=== PATIENT | male | born 1950 | race Caucasian/White ===

== ENCOUNTER 2019-10-21 17:47 | Emergency (ER) | payer SELFPAY ==
[~2019-10-21] VITALS: Ht 167.6 cm; Wt 113.6 kg
[2019-10-21] MEDS ORDERED: FAMO20 PO (18:04)
[2019-10-21] MEDS ORDERED: GABA-1216 PO (18:04)
[2019-10-21] MEDS ORDERED: HYDR-1475 PO (18:04)
[2019-10-21] MEDS ORDERED: METO-558 PO (18:04)
[2019-10-21] MEDS ORDERED: VALS160T2 PO (18:06)
[2019-10-21] MEDS ORDERED: ATOR40TA28 PO (18:06)
[2019-10-21] MEDS ORDERED: DOXA2TAB PO (18:06)
[2019-10-21 19:54] LABS: APPEARANCE,URINE CLEAR (CLEAR); BILIRUBIN,URINE NEGATIVE (NEGATIVE); GLUCOSE, URINE (UA) NEGATIVE (NEGATIVE); KETONES,URINE NEGATIVE (NEGATIVE); LEUKOCYTE ESTERASE ,URINE MODERATE (NEGATIVE); NITRATE,URINE NEGATIVE (NEGATIVE); OCCULT BLOOD,URINE NEGATIVE (NEGATIVE); PH,URINE 5.5 (5.0-8.0); PROTEIN,URINE NEGATIVE (NEGATIVE)
[2019-10-21 20:13] LABS: BACTERIA,URINE Many /HPF (None Seen); RBC,URINE None Seen /HPF (0-2)
[2019-10-21 20:14] LABS: SQUAMOUS EPITHELIAL CELL,UR Rare /LPF (None Seen)
[2019-10-21] MEDS ORDERED: CefTRIAXone SODIUM 1 GM/VIAL IM ONE (20:15)
[2019-10-21] MEDS ORDERED: LIDOCAINE/PF 1% 2 ML VIAL IM ONE (20:15)
[2019-10-21 20:25] VITALS: BP 136/88
== END 2019-10-21 21:00 | disposition home or self-care (01) ==
LOC: EMS 17:50
DX: N39.0 Urinary tract infection, site not specified (principal); E78.00 Pure hypercholesterolemia, unspecified; I10 Essential (primary) hypertension
CPT/HCPCS: 81001; 87086; 96372; 99283; J0696; J3490

== ENCOUNTER 2019-10-27 07:59 | Emergency (ER) | payer MEDICARE, OTHER ==
[~2019-10-27] VITALS: Ht 165.1 cm; Wt 100.0 kg
[~2019-10-27 07:59] MED LIST: ATOR40TA28 PO; DOXA2TAB PO; FAMO20 PO; GABA-1216 PO; HYDR-1475 PO; METO-558 PO; VALS160T2 PO
[2019-10-27 11:50] LABS: APPEARANCE,URINE CLEAR (CLEAR); GLUCOSE, URINE (UA) NEGATIVE (NEGATIVE); KETONES,URINE TRACE mg/dL (NEGATIVE); LEUKOCYTE ESTERASE ,URINE NEGATIVE (NEGATIVE); NITRATE,URINE NEGATIVE (NEGATIVE); OCCULT BLOOD,URINE NEGATIVE (NEGATIVE); PH,URINE 5.5 (5.0-8.0); PROTEIN,URINE NEGATIVE (NEGATIVE); UROBILINOGEN,URINE 0.2 mg/dL (<=1.0)
[2019-10-27 11:53] LABS: BILIRUBIN,URINE PRELIM. POSITIVE (NEGATIVE)
[2019-10-27 12:02] LABS: BACTERIA,URINE None Seen /HPF (None Seen); RBC,URINE 0-2 /HPF (0-2); WBC,URINE 0-2 /HPF (0-5)
[2019-10-27 12:42] LABS: BASOPHILS % (AUTO) 0.9 % (0.0-2.0); EOSINOPHILS % (AUTO) 1.9 % (1.0-6.0); HEMATOCRIT 47.9 % (41-53); HEMOGLOBIN 16.2 g/dL (13.5-17.5); LYMPHOCYTES # (AUTO) 2.7 K/uL (1.0-4.8); LYMPHOCYTES % (AUTO) 37.5 % (22.0-44.0); MEAN CORPUSCULAR HEMOGLOBIN 30.7 pg (26.0-34.0); MEAN CORPUSCULAR HGB CONC 33.8 G/dL (31.0-37.0); MEAN CORPUSCULAR VOLUME 91 fL (80-100); MONOCYTES # (AUTO) 0.6 K/uL (0.1-1.0); MONOCYTES % (AUTO) 8.3 % (2.0-9.0); NEUTROPHILS # (AUTO) 3.8 K/uL (1.8-7.7); NEUTROPHILS % (AUTO) 51.4 % (40.0-70.0); PLATELET COUNT (AUTO) 195 K/uL (150-450); RED BLOOD CELL COUNT(AUTO) 5.27 MIL/uL (4.50-5.90); RED CELL DISTRIBUTION WIDTH 13.9 % (11.5-14.5)
[2019-10-27 12:50] LABS: CREATININE 1.24 mg/dL (0.60-1.30); POTASSIUM 3.4 mmol/L (3.5-5.1)
[2019-10-27 12:56] LABS: ALBUMIN 3.7 g/dL (3.4-5.0); BILIRUBIN,TOTAL 0.9 mg/dL (0.1-1.0); TOTAL PROTEIN, SERUM 7.6 g/dL (6.4-8.2)
[2019-10-27 14:30] VITALS: BP 111/65
[2019-10-27] MEDS ORDERED: POTASSIUM CHLORIDE 20 MEQ ER TABLET PO ONE (14:30)
== END 2019-10-27 15:21 | disposition home or self-care (01) ==
LOC: EMS 08:01
DX: E87.6 Hypokalemia (principal); R32 Unspecified urinary incontinence; R30.0 Dysuria; R39.15 Urgency of urination; E78.00 Pure hypercholesterolemia, unspecified; I10 Essential (primary) hypertension
CPT/HCPCS: 76700

== ENCOUNTER 2022-02-07 16:31 | Emergency (ER) | payer OTHER ==
[~2022-02-07] VITALS: Ht 165.1 cm; Wt 116.5 kg
[~2022-02-07 16:31] MED LIST changes: +ASPI-1444 PO; +DONE-52 PO; -DOXA2TAB PO; +DOXA2TAB86 PO; -HYDR-1475 PO
[2022-02-07 19:01] LABS: BASOPHILS % (AUTO) 0.7 % (0.0-2.0); EOSINOPHILS % (AUTO) 2.3 % (1.0-6.0); HEMATOCRIT 42.2 % (41-53); HEMOGLOBIN 14.3 g/dL (13.5-17.5); LYMPHOCYTES # (AUTO) 2.3 K/uL (1.0-4.8); LYMPHOCYTES % (AUTO) 34.5 % (22.0-44.0); MEAN CORPUSCULAR HEMOGLOBIN 30.2 pg (26.0-34.0); MEAN CORPUSCULAR HGB CONC 33.8 G/dL (31.0-37.0); MEAN CORPUSCULAR VOLUME 89 fL (80-100); MONOCYTES # (AUTO) 0.6 K/uL (0.1-1.0); MONOCYTES % (AUTO) 9.1 % (2.0-9.0); NEUTROPHILS # (AUTO) 3.5 K/uL (1.8-7.7); NEUTROPHILS % (AUTO) 53.4 % (40.0-70.0); PLATELET COUNT (AUTO) 179 K/uL (150-450); RED BLOOD CELL COUNT(AUTO) 4.72 MIL/uL (4.50-5.90); RED CELL DISTRIBUTION WIDTH 13.5 % (11.5-14.5)
[2022-02-07 19:08] LABS: ANION GAP 5 mmol/L (8-16); CALCIUM, TOTAL 8.4 mg/dL (8.8-10.5); CARBON DIOXIDE 33 mmol/L (22-29); CHLORIDE 106 mmol/L (98-107); GLUCOSE,RANDOM 144 mg/dL (70-110); POTASSIUM 3.3 mmol/L (3.5-5.1); SODIUM SERUM 144 mmol/L (136-145); UREA NITROGEN, BLOOD 16 mg/dL (7-18)
[2022-02-07 19:09] LABS: GLOMERULAR FILTR. RATE CALC > 60 mL/min (>60)
[2022-02-07 19:13] LABS: COVID AG,FIA SOURCE NASAL SWAB
[2022-02-07 19:15] LABS: ALANINE AMINOTRANSFERASE 13 U/L (12-78); ALBUMIN 2.9 g/dL (3.4-5.0); ALKALINE PHOSPHATASE 72 U/L (46-116); ASPARTATE AMINOTRANSFERASE 17 U/L (15-37); B-TYPE NATRIURETIC PEPTIDE 109 pg/mL (0-100); BILIRUBIN,TOTAL 0.5 mg/dL (0.1-1.0); TOTAL PROTEIN, SERUM 6.4 g/dL (6.4-8.2)
[2022-02-07] MEDS ORDERED: POTASSIUM CHLORIDE 20 MEQ ER TABLET PO ONE (19:30)
[2022-02-07] MEDS ORDERED: FUROSEMIDE 40 MG/4 ML VIAL IVP ONE (19:30)
[2022-02-08 05:46] VITALS: BP 118/68
== END 2022-02-08 09:11 | disposition home or self-care (01) ==
LOC: EMS 16:32
DX: R06.02 Shortness of breath (principal); Z20.822 Contact with and (suspected) exposure to COVID-19; I11.0 Hypertensive heart disease with heart failure; I50.9 Heart failure, unspecified; K21.9 Gastro-esophageal reflux disease without esophagitis; N40.0 Benign prostatic hyperplasia without lower urinary tract symptoms
CPT/HCPCS: 99285; 96374; 71045; 87426; 80053; 83880; 84484; 85025; 85379; 87040; 36415; 93005; J1940

== ENCOUNTER 2022-08-15 14:35 | Inpatient (IN) | payer MEDICARE, OTHER ==
[~2022-08-15] VITALS: Ht 170.2 cm; Wt 120.5 kg
[2022-08-15] MEDS ORDERED: APIX5TAB PO (14:55)
[2022-08-15] MEDS ORDERED: CARV25TA32 PO (14:55)
[2022-08-15] MEDS ORDERED: LINA5TAB PO (14:55)
[2022-08-15] MEDS ORDERED: FURO20 PO (14:55)
[2022-08-15 15:58] LABS: BASOPHILS % (AUTO) 0.6 % (0.0-2.0); EOSINOPHILS % (AUTO) 0.4 % (1.0-6.0); HEMATOCRIT 45.8 % (41-53); HEMOGLOBIN 15.2 g/dL (13.5-17.5); LYMPHOCYTES # (AUTO) 0.4 K/uL (1.0-4.8); LYMPHOCYTES % (AUTO) 4.5 % (22.0-44.0); MEAN CORPUSCULAR HEMOGLOBIN 30.3 pg (26.0-34.0); MEAN CORPUSCULAR HGB CONC 33.2 G/dL (31.0-37.0); MEAN CORPUSCULAR VOLUME 91 fL (80-100); MONOCYTES # (AUTO) 0.4 K/uL (0.1-1.0); MONOCYTES % (AUTO) 4.8 % (2.0-9.0); NEUTROPHILS # (AUTO) 8.2 K/uL (1.8-7.7); PLATELET COUNT (AUTO) 172 K/uL (150-450); RED BLOOD CELL COUNT(AUTO) 5.02 MIL/uL (4.50-5.90); RED CELL DISTRIBUTION WIDTH 13.9 % (11.5-14.5)
[2022-08-15 16:01] LABS: ABG BASE EXCESS 5.3 mmol/L (-2.0-3.0); ABG CARBOXYHEMOGLOBIN 0.3 % (0.0-1.5); ABG METHEMOGLOBIN 1.6 % (0.0-1.5); ABG OXYGEN CONTENT 3.5 mL/dL (15.0-23.0); ABG OXYHEMOGLOBIN 16.6 % (94.0-100.0); ABG PCO2 50 mmHg (35-45); ABG PH 7.397 (7.35-7.450); TEMPERATURE, FAHRENHEIT, BG 98.5 FAHREN (96.0-98.6)
[2022-08-15 16:01] LABS: NEUTROPHILS % (AUTO) 89.7 % (40.0-70.0)
[2022-08-15 16:03] LABS: PO2, ARTERIAL BG 13.4 mmHg (75.0-83.0)
[2022-08-15 16:04] LABS: ABG OXYGEN SATURATION 16.9 % (95.0-98.0)
[2022-08-15 16:06] LABS: SITE, BLOOD GAS VENOUS LINE
[2022-08-15 16:07] LABS: SOURCE, BLOOD GAS VENOUS
[2022-08-15 16:08] LABS: ANION GAP 5 mmol/L (8-16); CALCIUM, TOTAL 8.2 mg/dL (8.8-10.5); CARBON DIOXIDE 32 mmol/L (22-29); CHLORIDE 102 mmol/L (98-107); CREATININE 1.25 mg/dL (0.60-1.30); GLOMERULAR FILTR. RATE CALC 57 mL/min (>60); GLUCOSE,RANDOM 154 mg/dL (70-110); POTASSIUM 3.7 mmol/L (3.5-5.1); SODIUM SERUM 139 mmol/L (136-145); UREA NITROGEN, BLOOD 26 mg/dL (7-18)
[2022-08-15 16:11] LABS: INR 1.1 (0.9-1.1); PROTHROMBIN TIME 11.7 SEC (9.4-11.6)
[2022-08-15 16:14] LABS: B-TYPE NATRIURETIC PEPTIDE 198 pg/mL (0-100)
[2022-08-15 16:15] LABS: ALANINE AMINOTRANSFERASE 15 U/L (12-78); ALBUMIN 3.1 g/dL (3.4-5.0); ALKALINE PHOSPHATASE 106 U/L (46-116); ASPARTATE AMINOTRANSFERASE 24 U/L (15-37); BILIRUBIN,TOTAL 0.9 mg/dL (0.1-1.0); CREATINE KINASE, TOTAL ONLY 232 U/L (39-308); PHOSPHORUS 1.5 mg/dL (2.5-4.9); TOTAL PROTEIN, SERUM 6.7 g/dL (6.4-8.2)
[2022-08-15 16:17] LABS: AMMONIA 25 umol/L (11-32)
[2022-08-15 16:23] LABS: PLATELET MORPHOLOGY COMMENT LARGE PLTS PRESENT
[2022-08-15] MEDS ORDERED: DOXA1TAB9 PO (16:37)
[2022-08-15] MEDS ORDERED: FUROSEMIDE 20 MG/2 ML VIAL IVP ONE (16:45)
[2022-08-15 17:01] LABS: COVID AG,FIA SOURCE NASOPHARYNGEAL
[2022-08-15 17:30] LABS: INFLUENZA TYPE A NEGATIVE FOR TYPE A (NEGATIVE); INFLUENZA TYPE B NEGATIVE FOR TYPE B (NEGATIVE)
[2022-08-15] MEDS ORDERED: LORazepam 2 MG/ML VIAL IVP ONE (17:30)
[2022-08-15 20:22] LABS: APPEARANCE,URINE HAZY (CLEAR); BILIRUBIN,URINE NEGATIVE (NEGATIVE); GLUCOSE, URINE (UA) NEGATIVE (NEGATIVE); KETONES,URINE NEGATIVE (NEGATIVE); LEUKOCYTE ESTERASE ,URINE MODERATE (NEGATIVE); NITRATE,URINE NEGATIVE (NEGATIVE); OCCULT BLOOD,URINE MODERATE (NEGATIVE); PROTEIN,URINE TRACE mg/dL (NEGATIVE); SPECIFIC GRAVITIY, URINE 1.018 (1.003-1.030); UROBILINOGEN,URINE <=1.0 mg/dL (<=1.0)
[2022-08-15 20:29] LABS: AMPHET/METH SCREEN,URINE NEGATIVE (NEGATIVE); BARBITURATE SCREEN, URINE NEGATIVE (NEGATIVE); BENZODIAZEPINES SCREEN,URINE NEGATIVE (NEGATIVE); CANNABINOID SCREEN,URINE NEGATIVE (NEGATIVE); COCAINE SCREEN,URINE NEGATIVE (NEGATIVE); METHADONE SCREEN, URINE NEGATIVE (NEGATIVE); OPIATE SCREEN,URINE NEGATIVE (NEGATIVE); PHENCYCLIDINE SCREEN,URINE NEGATIVE (NEGATIVE)
[2022-08-15 20:33] LABS: BACTERIA,URINE Moderate /HPF (None Seen); SQUAMOUS EPITHELIAL CELL,UR None Seen /LPF (None Seen)
[2022-08-15] MEDS ORDERED: ACETAMINOPHEN 325 MG TABLET PO PRN (20:45)
[2022-08-15] MEDS ORDERED: ALBUTEROL SULFATE 2.5 MG/0.5 ML NEB SOLUTION NEB PRN (20:45)
[2022-08-15] MEDS ORDERED: INSULIN LISPRO 100 UNITS/ML SQ PRN (20:45)
[2022-08-15] MEDS ORDERED: DEXTROSE 50%-WATER 25 GM/50 ML SYRINGE IVP PRN (20:45)
[2022-08-15] MEDS ORDERED: IPRATROPIUM BROMIDE 0.5 MG/2.5 ML NEB SOLUTION NEB PRN (20:45)
[2022-08-15] MEDS ORDERED: ONDANSETRON HCL 4 MG/2 ML VIAL IVP PRN (20:45)
[2022-08-15] MEDS ORDERED: CefTRIAXone 1 GM/DEXTROSE 50 ML IV SCH (21:00)
[2022-08-15] MEDS ORDERED: AZITHROMYCIN 500 MG/NS 250 ML IV SCH (22:00)
[2022-08-15] MEDS: FAMOTIDINE 20 MG TABLET PO SCH (22:04)
[2022-08-15] MEDS: APIXABAN 5 MG TABLET PO SCH (22:04)
[2022-08-15] MEDS: DOXAZOSIN MESYLATE 1 MG TABLET PO SCH (22:04)
[2022-08-15] MEDS: ATORVASTATIN CALCIUM 40 MG TABLET PO SCH (22:04)
[2022-08-15] MEDS: GABAPENTIN 100 MG CAPSULE PO SCH (22:04)
[2022-08-15] MEDS: CARVEDILOL 25 MG TABLET PO SCH (22:04)
[2022-08-15] MEDS ORDERED: SODIUM CHLORIDE 0.9% 250 ML IV ONE (22:12)
[2022-08-15 22:27] VITALS: BP 111/64
[2022-08-16] MEDS ORDERED: HEPARIN SODIUM,PORCINE 5,000 UNITS/ML VIAL SQ SCH
[2022-08-16] MEDS ORDERED: SODIUM,POTASSIUM PHOSPHATES POWDER PACKET PO ONE (03:15)
[2022-08-16 03:56] LABS: GLUCOMETER DEV NAME(LOC) 5N.1C; GLUCOSE,POINT OF CARE 134 MG/DL (70-110)
[2022-08-16] MEDS ORDERED: NYSTATIN 15 GM POWDER BOTTLE TP PRN (04:00)
[2022-08-16 04:36] VITALS: BP 99/54
[2022-08-16] MEDS ORDERED: FUROSEMIDE 20 MG/2 ML VIAL IVP SCH (07:00)
[2022-08-16 07:39] VITALS: BP 105/57
[2022-08-16] MEDS: DOXAZOSIN MESYLATE 1 MG TABLET PO SCH (10:28)
[2022-08-16] MEDS: ASPIRIN 81 MG DR TABLET PO SCH (10:28)
[2022-08-16] MEDS: GABAPENTIN 100 MG CAPSULE PO SCH ×2 (10:28→17:18)
[2022-08-16] MEDS: CARVEDILOL 25 MG TABLET PO SCH ×2 (10:29→20:46)
[2022-08-16] MEDS: APIXABAN 5 MG TABLET PO SCH ×2 (10:29→20:46)
[2022-08-16] MEDS: FAMOTIDINE 20 MG TABLET PO SCH ×2 (10:37→20:46)
[2022-08-16 11:39] VITALS: BP 100/48
[2022-08-16] MEDS ORDERED: PERFLUTREN PROTEIN-A MICROSPHERES 0.22 MG/ML 3 ML VIAL IVP ONE (12:45)
[2022-08-16 16:44] VITALS: BP 102/65
[2022-08-16] MEDS ORDERED: GABAPENTIN 300 MG CAPSULE PO PRN (17:45)
[2022-08-16 20:06] LABS: GLUCOMETER DEV NAME(LOC) 5S.2C; GLUCOSE,POINT OF CARE 175 MG/DL (70-110)
[2022-08-16] MEDS: ATORVASTATIN CALCIUM 40 MG TABLET PO SCH (20:46)
[2022-08-16] MEDS: GABAPENTIN 300 MG CAPSULE PO SCH (20:46)
[2022-08-16] MEDS: MELATONIN 5 MG TABLET PO SCH (20:47)
[2022-08-16] MEDS: INSULIN GLARGINE,HUM.REC.ANLOG 100 UNITS/ML SQ SCH ×2 (20:50→21:00)
[2022-08-17] VITALS: BP 137/75
[2022-08-17 04:00] VITALS: BP 109/67
[2022-08-17 06:07] LABS: GLUCOMETER DEV NAME(LOC) 5N.1C; GLUCOSE,POINT OF CARE 130 MG/DL (70-110)
[2022-08-17 06:07] LABS: GLUCOMETER DEV NAME(LOC) 5N.1C; GLUCOSE,POINT OF CARE 109 MG/DL (70-110)
[2022-08-17 06:42] LABS: BASOPHILS % (AUTO) 0.3 % (0.0-2.0); EOSINOPHILS % (AUTO) 1.7 % (1.0-6.0); HEMATOCRIT 38.8 % (41-53); HEMOGLOBIN 13.2 g/dL (13.5-17.5); LYMPHOCYTES # (AUTO) 2.2 K/uL (1.0-4.8); LYMPHOCYTES % (AUTO) 24.7 % (22.0-44.0); MEAN CORPUSCULAR HEMOGLOBIN 30.7 pg (26.0-34.0); MEAN CORPUSCULAR VOLUME 90 fL (80-100); MONOCYTES % (AUTO) 11.6 % (2.0-9.0); NEUTROPHILS # (AUTO) 5.4 K/uL (1.8-7.7); NEUTROPHILS % (AUTO) 61.7 % (40.0-70.0); PLATELET COUNT (AUTO) 151 K/uL (150-450); RED CELL DISTRIBUTION WIDTH 13.7 % (11.5-14.5)
[2022-08-17 06:57] LABS: ANION GAP 7 mmol/L (8-16); CALCIUM, TOTAL 8.2 mg/dL (8.8-10.5); CARBON DIOXIDE 29 mmol/L (22-29); CHLORIDE 105 mmol/L (98-107); CREATININE 1.15 mg/dL (0.60-1.30); GLOMERULAR FILTR. RATE CALC > 60 mL/min (>60); GLUCOSE,RANDOM 103 mg/dL (70-110); POTASSIUM 3.2 mmol/L (3.5-5.1); SODIUM SERUM 141 mmol/L (136-145); UREA NITROGEN, BLOOD 38 mg/dL (7-18)
[2022-08-17 08:28] VITALS: BP 104/68
[2022-08-17] MEDS: FUROSEMIDE 20 MG TABLET PO SCH (08:29)
[2022-08-17] MEDS: DULoxetine HCL 20 MG CAPSULE PO SCH (08:29)
[2022-08-17] MEDS: APIXABAN 5 MG TABLET PO SCH ×2 (08:30→20:08)
[2022-08-17] MEDS: GABAPENTIN 300 MG CAPSULE PO SCH ×3 (08:30→20:08)
[2022-08-17] MEDS: FAMOTIDINE 20 MG TABLET PO SCH ×2 (08:31→20:08)
[2022-08-17] MEDS: CARVEDILOL 25 MG TABLET PO SCH ×2 (08:31→20:08)
[2022-08-17] MEDS: ASPIRIN 81 MG DR TABLET PO SCH (08:31)
[2022-08-17] MEDS ORDERED: FUROSEMIDE 20 MG/2 ML VIAL IVP SCH (09:00)
[2022-08-17 11:21] VITALS: BP 105/62
[2022-08-17] MEDS ORDERED: POTASSIUM CHLORIDE 20 MEQ ER TABLET PO ONE (15:45)
[2022-08-17 16:01] VITALS: BP 110/68
[2022-08-17 18:31] LABS: GLUCOMETER DEV NAME(LOC) 5S.1B; GLUCOSE,POINT OF CARE 100 MG/DL (70-110)
[2022-08-17] MEDS: ATORVASTATIN CALCIUM 40 MG TABLET PO SCH (20:08)
[2022-08-17] MEDS: DOXAZOSIN MESYLATE 1 MG TABLET PO SCH (20:08)
[2022-08-17] MEDS: MELATONIN 5 MG TABLET PO SCH (20:08)
[2022-08-17] MEDS: INSULIN GLARGINE,HUM.REC.ANLOG 100 UNITS/ML SQ SCH (20:17)
[2022-08-17 20:30] LABS: GLUCOMETER DEV NAME(LOC) 5N.1C; GLUCOSE,POINT OF CARE 153 MG/DL (70-110)
[2022-08-17 20:31] LABS: GLUCOMETER DEV NAME(LOC) 5N.1C; GLUCOSE,POINT OF CARE 196 MG/DL (70-110)
[2022-08-18 04:00] VITALS: BP 108/65
[2022-08-18 08:25] VITALS: BP 131/78
[2022-08-18] MEDS: FAMOTIDINE 20 MG TABLET PO SCH (08:31)
[2022-08-18] MEDS: DULoxetine HCL 20 MG CAPSULE PO SCH (08:31)
[2022-08-18] MEDS: CARVEDILOL 25 MG TABLET PO SCH (08:32)
[2022-08-18] MEDS: GABAPENTIN 300 MG CAPSULE PO SCH ×2 (08:32→16:09)
[2022-08-18] MEDS: FUROSEMIDE 20 MG TABLET PO SCH (08:32)
[2022-08-18] MEDS: APIXABAN 5 MG TABLET PO SCH (08:32)
[2022-08-18] MEDS: ASPIRIN 81 MG DR TABLET PO SCH (08:33)
[2022-08-18] MEDS ORDERED: LOSARTAN POTASSIUM 25 MG TABLET PO SCH (09:00)
[2022-08-18] MEDS ORDERED: SPIRONOLACTONE 25 MG TABLET PO SCH (09:00)
[2022-08-18 11:01] LABS: ANION GAP 5 mmol/L (8-16); CALCIUM, TOTAL 8.3 mg/dL (8.8-10.5); CARBON DIOXIDE 30 mmol/L (22-29); CHLORIDE 107 mmol/L (98-107); CREATININE 1.09 mg/dL (0.60-1.30); GLOMERULAR FILTR. RATE CALC > 60 mL/min (>60); GLUCOSE,RANDOM 166 mg/dL (70-110); POTASSIUM 3.7 mmol/L (3.5-5.1); SODIUM SERUM 142 mmol/L (136-145); UREA NITROGEN, BLOOD 25 mg/dL (7-18)
[2022-08-18 12:40] VITALS: BP 149/79
[2022-08-18 17:49] VITALS: BP 137/91
[2022-08-18 20:26] LABS: GLUCOMETER DEV NAME(LOC) 5S.1B; GLUCOSE,POINT OF CARE 95 MG/DL (70-110)
[2022-08-19 05:36] LABS: GLUCOMETER DEV NAME(LOC) 5N.1C; GLUCOSE,POINT OF CARE 148 MG/DL (70-110)
== END 2022-08-18 17:40 | DRG 291 ==
LOC: EMS 14:37 → 5S 20:58
PROVIDERS: ADMIT Internal Medicine; ATTEND Internal Medicine
DX: I11.0 Hypertensive heart disease with heart failure (principal); G92.9 Unspecified toxic encephalopathy; J18.9 Pneumonia, unspecified organism; I50.43 Acute on chronic combined systolic (congestive) and diastolic (congestive) heart failure; N39.0 Urinary tract infection, site not specified; I48.19 Other persistent atrial fibrillation; Z68.41 Body mass index [BMI] 40.0-44.9, adult; Z20.822 Contact with and (suspected) exposure to COVID-19; K21.9 Gastro-esophageal reflux disease without esophagitis; R41.89 Other symptoms and signs involving cognitive functions and awareness; R15.9 Full incontinence of feces; W07.XXXA Fall from chair, initial encounter; E87.6 Hypokalemia; W18.2XXA Fall in (into) shower or empty bathtub, initial encounter; E78.00 Pure hypercholesterolemia, unspecified; F32.9 Major depressive disorder, single episode, unspecified; E11.9 Type 2 diabetes mellitus without complications; E66.01 Morbid (severe) obesity due to excess calories; F03.90 Unspecified dementia, unspecified severity, without behavioral disturbance, psychotic disturbance, mood disturbance, and anxiety; I25.10 Atherosclerotic heart disease of native coronary artery without angina pectoris; N40.0 Benign prostatic hyperplasia without lower urinary tract symptoms; Z79.01 Long term (current) use of anticoagulants; Z79.84 Long term (current) use of oral hypoglycemic drugs; Z79.899 Other long term (current) drug therapy; Y93.E1 Activity, personal bathing and showering; Y92.89 Other specified places as the place of occurrence of the external cause; Z79.82 Long term (current) use of aspirin; Z79.4 Long term (current) use of insulin
CPT/HCPCS: 36600; 70450; 71250; 72125; 80048; 80053; 80307; 81001; 82140; 82550; 82805; 82962; 83605; 83735; 83880; 84100; 84484; 85025; 85610; 85730; 87040; 87086; 87186; 87804; 93005; 93306; 97162; 97166; 97535; 99291; G0480; J0456; J0696; J1815; J1940; J2060; J7050; Q9967

== ENCOUNTER 2022-10-05 15:11 | Emergency (ER) | payer MEDICARE, OTHER ==
[~2022-10-05] VITALS: Ht 172.7 cm; Wt 104.5 kg
[~2022-10-05 15:11] MED LIST changes: +APIX5TAB PO; -ASPI-1444 PO; +CARV25TA32 PO; -DONE-52 PO; +DOXA1TAB9 PO; -DOXA2TAB86 PO; +FURO20 PO; +LINA5TAB PO; -METO-558 PO; -VALS160T2 PO
[2022-10-05] MEDS ORDERED: LIDOCAINE 5% TRANSDERMAL PATCH TD ONE (16:45)
[2022-10-05] MEDS ORDERED: KETOROLAC TROMETHAMINE 30 MG/ML VIAL IM ONE (16:45)
[2022-10-05] MEDS ORDERED: CYCLOBENZAPRINE HCL 10 MG TABLET PO ONE (16:45)
[2022-10-05 17:03] LABS: BASOPHILS % (AUTO) 0.4 % (0.0-2.0); EOSINOPHILS % (AUTO) 2.8 % (1.0-6.0); HEMATOCRIT 42.7 % (41-53); HEMOGLOBIN 14.2 g/dL (13.5-17.5); LYMPHOCYTES # (AUTO) 2.4 K/uL (1.0-4.8); LYMPHOCYTES % (AUTO) 30.8 % (22.0-44.0); MEAN CORPUSCULAR HEMOGLOBIN 30.3 pg (26.0-34.0); MEAN CORPUSCULAR HGB CONC 33.2 G/dL (31.0-37.0); MEAN CORPUSCULAR VOLUME 91 fL (80-100); MONOCYTES # (AUTO) 0.7 K/uL (0.1-1.0); NEUTROPHILS # (AUTO) 4.5 K/uL (1.8-7.7); PLATELET COUNT (AUTO) 177 K/uL (150-450); RED BLOOD CELL COUNT(AUTO) 4.68 MIL/uL (4.50-5.90); RED CELL DISTRIBUTION WIDTH 13.9 % (11.5-14.5)
[2022-10-05 17:16] LABS: ANION GAP 2 mmol/L (8-16); CALCIUM, TOTAL 8.4 mg/dL (8.8-10.5); CARBON DIOXIDE 34 mmol/L (22-29); CHLORIDE 104 mmol/L (98-107); CREATININE 1.13 mg/dL (0.60-1.30); GLOMERULAR FILTR. RATE CALC > 60 mL/min (>60); GLUCOSE,RANDOM 98 mg/dL (70-110); POTASSIUM 3.8 mmol/L (3.5-5.1); SODIUM SERUM 140 mmol/L (136-145); UREA NITROGEN, BLOOD 22 mg/dL (7-18)
[2022-10-05] MEDS ORDERED: CYCL-448 PO (18:10)
[2022-10-05] MEDS ORDERED: ACET-3385 PO (18:10)
[2022-10-05 18:18] VITALS: BP 129/61
== END 2022-10-05 20:30 | disposition home or self-care (01) ==
LOC: EMS 15:15
DX: M54.50 Low back pain, unspecified (principal); I48.91 Unspecified atrial fibrillation; I11.0 Hypertensive heart disease with heart failure; I50.9 Heart failure, unspecified; K21.9 Gastro-esophageal reflux disease without esophagitis; I25.10 Atherosclerotic heart disease of native coronary artery without angina pectoris
CPT/HCPCS: 99285; 74176; 80048; 85025; 36415; 96372; J1885

== ENCOUNTER 2023-01-28 07:40 | Inpatient (IN) | payer MEDICARE, OTHER ==
[~2023-01-28] VITALS: Ht 170.2 cm; Wt 123.5 kg
[~2023-01-28 07:40] MED LIST changes: +CEPH-558 PO; +CYCL-448 PO; +LISI-892 PO
[2023-01-28 08:26] LABS: BASOPHILS % (AUTO) 0.6 % (0.0-2.0); EOSINOPHILS % (AUTO) 1.7 % (1.0-6.0); HEMATOCRIT 44.2 % (41-53); LYMPHOCYTES # (AUTO) 1.5 K/uL (1.0-4.8); LYMPHOCYTES % (AUTO) 21.6 % (22.0-44.0); MEAN CORPUSCULAR HEMOGLOBIN 30.7 pg (26.0-34.0); MEAN CORPUSCULAR HGB CONC 33.8 G/dL (31.0-37.0); MEAN CORPUSCULAR VOLUME 91 fL (80-100); MONOCYTES # (AUTO) 0.5 K/uL (0.1-1.0); MONOCYTES % (AUTO) 7.8 % (2.0-9.0); NEUTROPHILS # (AUTO) 4.8 K/uL (1.8-7.7); NEUTROPHILS % (AUTO) 68.3 % (40.0-70.0); PLATELET COUNT (AUTO) 183 K/uL (150-450); RED BLOOD CELL COUNT(AUTO) 4.87 MIL/uL (4.50-5.90); RED CELL DISTRIBUTION WIDTH 13.5 % (11.5-14.5)
[2023-01-28 08:34] LABS: CALCIUM, TOTAL 8.6 mg/dL (8.8-10.5); CREATININE 1.2 mg/dL (0.60-1.30); POTASSIUM 4.4 mmol/L (3.5-5.1)
[2023-01-28 08:40] LABS: ALBUMIN 2.9 g/dL (3.4-5.0); BILIRUBIN,TOTAL 0.6 mg/dL (0.1-1.0); TOTAL PROTEIN, SERUM 6.3 g/dL (6.4-8.2)
[2023-01-28 08:42] LABS: AMMONIA 19 umol/L (11-32)
[2023-01-28] MEDS ORDERED: SODIUM CHLORIDE 0.9% 1,000 ML IV ONE (09:15)
[2023-01-28] MEDS ORDERED: ASPIRIN 325 MG TABLET PO ONE (09:15)
[2023-01-28] MEDS ORDERED: CefTRIAXone 1 GM/DEXTROSE 50 ML IV ONE (09:15)
[2023-01-28 12:33] LABS: APPEARANCE,URINE CLEAR (CLEAR); BILIRUBIN,URINE NEGATIVE (NEGATIVE); GLUCOSE, URINE (UA) NEGATIVE (NEGATIVE); KETONES,URINE NEGATIVE (NEGATIVE); LEUKOCYTE ESTERASE ,URINE TRACE (NEGATIVE); NITRATE,URINE NEGATIVE (NEGATIVE); OCCULT BLOOD,URINE NEGATIVE (NEGATIVE); PROTEIN,URINE TRACE mg/dL (NEGATIVE); SPECIFIC GRAVITIY, URINE 1.025 (1.003-1.030); UROBILINOGEN,URINE <=1.0 mg/dL (<=1.0)
[2023-01-28 12:55] LABS: BACTERIA,URINE None Seen /HPF (None Seen); RBC,URINE None Seen /HPF (0-2); SQUAMOUS EPITHELIAL CELL,UR Few /LPF (None Seen); WBC,URINE 0-2 /HPF (0-5)
[2023-01-28] MEDS ORDERED: OxyCODONE HCL/ACETAMINOPHEN 5-325 MG TABLET PO PRN ×2 (13:00)
[2023-01-28] MEDS ORDERED: ONDANSETRON HCL 4 MG/2 ML VIAL IVP PRN (13:00)
[2023-01-28] MEDS ORDERED: MAGNESIUM HYDROXIDE SUSPENSION 30 ML UDCUP PO PRN (13:00)
[2023-01-28] MEDS ORDERED: INSULIN LISPRO 100 UNITS/ML SQ PRN (13:00)
[2023-01-28] MEDS ORDERED: ACETAMINOPHEN 325 MG TABLET PO PRN (13:00)
[2023-01-28] MEDS ORDERED: 0.9% SODIUM CHLORIDE 10 ML SYRINGE IVP PRN (13:00)
[2023-01-28] MEDS ORDERED: GLUCAGON,HUMAN RECOMBINANT 1 MG VIAL IM PRN (13:00)
[2023-01-28] MEDS ORDERED: DEXTROSE 50%-WATER 25 GM/50 ML SYG IVP PRN (13:15)
[2023-01-28 13:26] VITALS: BP 152/79; PULSE 74; RESP 14; TEMP 97.8
[2023-01-28 13:59] VITALS: BP 152/79; PULSE 74; RESP 18; TEMP 98
[2023-01-28] MEDS ORDERED: HEPARIN SODIUM,PORCINE 5,000 UNITS/ML VIAL SQ SCH ×2 (14:00→21:00)
[2023-01-28] MEDS: CARVEDILOL 25 MG TABLET PO SCH ×2 (15:06→21:09)
[2023-01-28] MEDS: APIXABAN 5 MG TABLET PO SCH ×2 (15:06→21:09)
[2023-01-28 16:41] VITALS: BP 148/75; PULSE 70; RESP 18; TEMP 98
[2023-01-28 17:41] LABS: GLUCOMETER DEV NAME(LOC) 5S.1B
[2023-01-28] MEDS: SODIUM CHLORIDE 0.9% 1,000 ML IV SCH ×2 (18:43→23:00)
[2023-01-28 21:06] VITALS: BP 121/57; PULSE 71; RESP 20; TEMP 98
[2023-01-28] MEDS: LISINOPRIL 5 MG TABLET PO SCH (21:09)
[2023-01-28] MEDS: ATORVASTATIN CALCIUM 40 MG TABLET PO SCH (21:09)
[2023-01-28] MEDS: DOCUSATE SODIUM 100 MG CAPSULE PO SCH (21:09)
[2023-01-28] MEDS: DOXAZOSIN MESYLATE 1 MG TABLET PO SCH (21:09)
[2023-01-28 22:31] LABS: GLUCOMETER DEV NAME(LOC) 5S.2C
[2023-01-28 23:43] VITALS: BP 143/76; PULSE 72; RESP 17; TEMP 98
[2023-01-29 03:49] VITALS: BP 107/71; PULSE 80; RESP 19; TEMP 98.4
[2023-01-29 06:37] LABS: GLUCOMETER DEV NAME(LOC) 5N.2C
[2023-01-29 07:38] VITALS: BP 150/82; PULSE 70; RESP 18; TEMP 97.8
[2023-01-29 11:07] VITALS: BP 139/73; PULSE 72; RESP 18; TEMP 98
[2023-01-29] MEDS: DOCUSATE SODIUM 100 MG CAPSULE PO SCH ×2 (11:15→20:44)
[2023-01-29] MEDS: APIXABAN 5 MG TABLET PO SCH ×2 (11:15→20:44)
[2023-01-29] MEDS: PANTOPRAZOLE SODIUM 40 MG/VIAL IVP SCH (11:15)
[2023-01-29] MEDS: CARVEDILOL 25 MG TABLET PO SCH ×2 (11:15→21:00)
[2023-01-29 12:20] LABS: BASOPHILS % (AUTO) 0.6 % (0.0-2.0); EOSINOPHILS % (AUTO) 2.5 % (1.0-6.0); HEMATOCRIT 42.8 % (41-53); HEMOGLOBIN 14.3 g/dL (13.5-17.5); LYMPHOCYTES % (AUTO) 35.3 % (22.0-44.0); MEAN CORPUSCULAR HEMOGLOBIN 30.5 pg (26.0-34.0); MEAN CORPUSCULAR HGB CONC 33.3 G/dL (31.0-37.0); MEAN CORPUSCULAR VOLUME 92 fL (80-100); MONOCYTES # (AUTO) 0.5 K/uL (0.1-1.0); MONOCYTES % (AUTO) 9.6 % (2.0-9.0); NEUTROPHILS # (AUTO) 2.9 K/uL (1.8-7.7); PLATELET COUNT (AUTO) 167 K/uL (150-450); RED BLOOD CELL COUNT(AUTO) 4.67 MIL/uL (4.50-5.90); RED CELL DISTRIBUTION WIDTH 13.5 % (11.5-14.5)
[2023-01-29 12:27] LABS: ANION GAP 5 mmol/L (8-16); CALCIUM, TOTAL 8.1 mg/dL (8.8-10.5); CARBON DIOXIDE 32 mmol/L (22-29); CHLORIDE 106 mmol/L (98-107); CREATININE 0.96 mg/dL (0.60-1.30); GLOMERULAR FILTR. RATE CALC > 60 mL/min (>60); GLUCOSE,RANDOM 100 mg/dL (70-110); POTASSIUM 4.2 mmol/L (3.5-5.1); SODIUM SERUM 143 mmol/L (136-145)
[2023-01-29 15:34] VITALS: BP 115/61; PULSE 64; RESP 18; TEMP 98.2
[2023-01-29] MEDS ORDERED: LORazepam 2 MG/ML VIAL IVP PRN (17:00)
[2023-01-29 18:52] LABS: GLUCOMETER DEV NAME(LOC) 5S.2C
[2023-01-29 19:59] VITALS: BP 102/64; PULSE 72; RESP 20; TEMP 98.2
[2023-01-29] MEDS: ATORVASTATIN CALCIUM 40 MG TABLET PO SCH (20:44)
[2023-01-29] MEDS: LISINOPRIL 5 MG TABLET PO SCH (20:44)
[2023-01-29] MEDS: DOXAZOSIN MESYLATE 1 MG TABLET PO SCH (20:44)
[2023-01-29 23:06] LABS: GLUCOMETER DEV NAME(LOC) 5N.2C
[2023-01-30 00:10] VITALS: BP 103/53; PULSE 69; RESP 20; TEMP 98.3
[2023-01-30 05:12] VITALS: BP 115/63; PULSE 69; RESP 18; TEMP 97.8
[2023-01-30 07:53] VITALS: BP 123/79; PULSE 68; RESP 18; TEMP 98.4
[2023-01-30] MEDS: DOCUSATE SODIUM 100 MG CAPSULE PO SCH ×2 (10:08→19:55)
[2023-01-30] MEDS: PANTOPRAZOLE SODIUM 40 MG/VIAL IVP SCH (10:08)
[2023-01-30] MEDS: CARVEDILOL 25 MG TABLET PO SCH ×2 (10:08→19:54)
[2023-01-30] MEDS: APIXABAN 5 MG TABLET PO SCH ×2 (10:08→19:54)
[2023-01-30 11:21] VITALS: BP 110/55; PULSE 75; RESP 20; TEMP 98.1
[2023-01-30 16:05] VITALS: BP 134/66; PULSE 73; RESP 18; TEMP 97.5
[2023-01-30 19:52] VITALS: BP 152/69; PULSE 75; RESP 20; TEMP 97.6
[2023-01-30] MEDS: ATORVASTATIN CALCIUM 40 MG TABLET PO SCH (19:54)
[2023-01-30] MEDS: DOXAZOSIN MESYLATE 1 MG TABLET PO SCH (19:54)
[2023-01-30] MEDS: LISINOPRIL 5 MG TABLET PO SCH (19:54)
[2023-01-30 23:26] LABS: GLUCOMETER DEV NAME(LOC) 5N.2C
[2023-01-30 23:31] LABS: GLUCOMETER DEV NAME(LOC) 5S.2C
[2023-01-31] VITALS: BP 145/69; PULSE 77; RESP 18; TEMP 98
[2023-01-31 04:00] VITALS: BP 140/70; PULSE 76; RESP 19; TEMP 97.9
[2023-01-31] MEDS: APIXABAN 5 MG TABLET PO SCH (09:00)
[2023-01-31] MEDS: CARVEDILOL 25 MG TABLET PO SCH (09:00)
[2023-01-31] MEDS: DOCUSATE SODIUM 100 MG CAPSULE PO SCH (09:00)
[2023-01-31] MEDS: PANTOPRAZOLE SODIUM 40 MG/VIAL IVP SCH (09:00)
[2023-01-31] MEDS ORDERED: DOXA1TAB9 PO (15:54)
[2023-01-31] MEDS ORDERED: DOCU-385 PO (15:54)
[2023-01-31] MEDS ORDERED: PANT-31 PO (15:55)
[2023-01-31] MEDS ORDERED: MAGN-169 PO (16:03)
[2023-01-31] MEDS ORDERED: PERCT PO (16:04)
[2023-01-31 17:41] LABS: GLUCOMETER DEV NAME(LOC) 5S.1B
[2023-02-01 09:17] LABS: GLUCOMETER DEV NAME(LOC) 5N.1C
[2023-02-01 09:17] LABS: GLUCOMETER DEV NAME(LOC) 5N.1C
[2023-02-01 09:26] LABS: GLUCOMETER DEV NAME(LOC) 5N.2C
== END 2023-01-31 16:30 | DRG 70 ==
LOC: EMS 07:41 → AHU 09:36 → 5S 12:07
PROVIDERS: ADMIT Internal Medicine; ATTEND Internal Medicine
DX: G93.41 Metabolic encephalopathy (principal); E43 Unspecified severe protein-calorie malnutrition; Z68.41 Body mass index [BMI] 40.0-44.9, adult; I48.19 Other persistent atrial fibrillation; N39.0 Urinary tract infection, site not specified; E86.0 Dehydration; I11.0 Hypertensive heart disease with heart failure; I25.10 Atherosclerotic heart disease of native coronary artery without angina pectoris; E66.01 Morbid (severe) obesity due to excess calories; I50.9 Heart failure, unspecified; E78.00 Pure hypercholesterolemia, unspecified; N40.0 Benign prostatic hyperplasia without lower urinary tract symptoms; K21.9 Gastro-esophageal reflux disease without esophagitis; F03.90 Unspecified dementia, unspecified severity, without behavioral disturbance, psychotic disturbance, mood disturbance, and anxiety; E11.65 Type 2 diabetes mellitus with hyperglycemia; Z83.3 Family history of diabetes mellitus; Z79.899 Other long term (current) drug therapy; Z79.01 Long term (current) use of anticoagulants
CPT/HCPCS: 70450; 71045; 80048; 80053; 81001; 82140; 82962; 83605; 83690; 83880; 84484; 85025; 87040; 87081; 93005; 93306; 97116; 97162; 97530; 99291; C9113; G0378; J0696; J7030; 36415-L1; 36415-TC